=== PATIENT | male | born 1980 | race Asian ===

== ENCOUNTER 2024-10-06 16:43 | Emergency (ER) | payer BC ==
[~2024-10-06] VITALS: Ht 182.9 cm; Wt 85.0 kg
[2024-10-06 16:46] VITALS: O2SAT 100
[2024-10-06 17:48] LABS: HEMATOCRIT. 41.1 % (42.0-52.0); HEMOGLOBIN. 13.6 g/dL (14.0-18.0); MEAN CORPUSCULAR HGB CONC 33.2 g/dL (31.0-37.0); MEAN CORPUSCULAR VOLUME 90.3 fL (80.0-94.0); MEAN PLATELET VOLUME 9.9 fl (7.4-10.4); PLATELET 167 x1000/uL (130-400); RED BLOOD CELL COUNT 4.55 mill/uL (4.7-6.1); RED CELL DISTRIBUTION WIDTH 13.1 % (11.6-14.6); WHITE BLOOD COUNT 4.4 x1000/uL (4.5-11.0)
[2024-10-06 17:52] LABS: DIFFERENTIAL COMMENT 1
[2024-10-06 17:54] LABS: CHLORIDE 101 mEq/L (98-107); CLARITY URINE CLEAR (CLEAR); COLOR URINE YELLOW (YELLOW); GLUCOSE URINE NEGATIVE (NEGATIVE); KETONES URINE 1+ (NEGATIVE); LEUKOCYTE ESTERASE URINE NEGATIVE (NEGATIVE); NITRITE URINE NEGATIVE (NEGATIVE); OCCULT BLOOD URINE NEGATIVE (NEGATIVE); POTASSIUM 3.4 mEq/L (3.5-5.1); PROTEIN URINE NEGATIVE (NEGATIVE); SODIUM 138 mEq/L (136-145); SPECIFIC GRAVITY URINE 1.014 (1.005-1.030); UROBILINOGEN URINE 0.2 E.U./dL (0.2-1.0)
[2024-10-06 17:55] LABS: CALCIUM 9.3 mg/dL (8.7-10.4); CARBON DIOXIDE 30 mEq/L (21-32)
[2024-10-06 18:00] LABS: CREATININE 0.8 mg/dL (0.6-1.3); GLUCOSE 96 mg/dL (70-105); UREA NITROGEN BLOOD 21 mg/dL (9-23)
[2024-10-06 18:12] LABS: PLATELET ESTIMATE NORMAL
[2024-10-06] MEDS: SODIUM CHLORIDE 0.9% 1,000 ML IV ONE (19:31)
[2024-10-06 19:34] VITALS: BP 149/76; PULSE 70; RESP 18; TEMP 36.7; O2SAT 98
== END 2024-10-06 19:35 | disposition home or self-care (01) ==
LOC: ER 16:43
DX: E86.0 Dehydration (principal); F10.10 Alcohol abuse, uncomplicated; I10 Essential (primary) hypertension; Y90.9 Presence of alcohol in blood, level not specified
CPT/HCPCS: 99284; 80048; 81003; 85025; 36415; 93005; J7030